=== PATIENT | female | born 1995 | race African-American/Black ===

== ENCOUNTER 2022-02-07 13:50 | Emergency (ER) | payer MEDICAID ==
[~2022-02-07] VITALS: Ht 167.6 cm; Wt 102.0 kg
[2022-02-07 14:24] VITALS: BP 144/77
[2022-02-07] MEDS ORDERED: DIPH25CA83 PO (15:18)
[2022-02-07] MEDS ORDERED: P20 MT (15:18)
== END 2022-02-07 15:27 | disposition home or self-care (01) ==
LOC: ER 13:50
DX: T78.49XA Other allergy, initial encounter (principal); X58.XXXA Exposure to other specified factors, initial encounter; L29.9 Pruritus, unspecified
CPT/HCPCS: 81025; 99283

== ENCOUNTER 2024-11-11 11:17 | Emergency (ER) | payer MEDICAID ==
[~2024-11-11] VITALS: Ht 167.6 cm; Wt 96.6 kg
[~2024-11-11 11:17] MED LIST: DIPH25CA83 PO; P20 MT
[2024-11-11 12:58] VITALS: O2SAT 100
[2024-11-11] MEDS: ACETAMINOPHEN 500MG TABLET PO ONE (14:42)
[2024-11-11] MEDS: KETOROLAC 30MG/ML VIAL IM STA (14:42)
[2024-11-11 16:47] VITALS: BP 122/87; PULSE 64; RESP 18; TEMP 36.7; O2SAT 99
== END 2024-11-11 17:33 | disposition home or self-care (01) ==
LOC: ER 11:17
DX: M25.561 Pain in right knee (principal); Z79.52 Long term (current) use of systemic steroids; Z79.899 Other long term (current) drug therapy; Z91.018 Allergy to other foods
CPT/HCPCS: 81025; 73560; 29505; 96372; 99283; J1885; Z7610 ×2